=== PATIENT | male | born 1950 | race Caucasian/White ===

== ENCOUNTER 2024-09-06 12:17 | Emergency (ER) | payer MEDICARE, OTHER, SELFPAY ==
[2024-09-06 12:25] VITALS: BP 137/74
[2024-09-06 12:50] VITALS: BMI 26.8
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
== END 2024-09-06 13:09 | disposition home or self-care (01) ==
LOC: EMR 12:17
PROVIDERS: EMERGENCY PHYSICIAN Emergency Medicine; FAMILY PHYSICIAN Family Medicine
DX: S09.90XA Unspecified injury of head, initial encounter (principal); S00.03XA Contusion of scalp, initial encounter; W22.8XXA Striking against or struck by other objects, initial encounter; E11.9 Type 2 diabetes mellitus without complications; I10 Essential (primary) hypertension; E03.9 Hypothyroidism, unspecified; E78.00 Pure hypercholesterolemia, unspecified; N40.0 Benign prostatic hyperplasia without lower urinary tract symptoms
CPT/HCPCS: 99282